=== PATIENT | male | born 1975 | race Caucasian/White ===

== ENCOUNTER 2016-10-29 18:51 | Inpatient (IN) | payer OTHER ==
[~2016-10-29] VITALS: Ht 193 cm; Wt 66.5 kg
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
--- NOTE | ~2016-10-29 | OR ---
Unit #: [id number] #: [id number] Patient: ZAIRE GRIFFIN [id number] [address] [address] [id number] I MR#: [id number] NAME: ZAIRE GRIFFIN ROOM: [facility] Date of Procedure: 10/30/2016 Admission Date: 10/29/2016 Surgeon: Carlos Taylor M.D. : 1975 Attending Physician: Dori Stinson M.D. Primary Care Physician: Tequila Galindo A.P.R.N. OPERATIVE REPORT PROCEDURE PERFORMED Esophagogastroduodenoscopy with biopsy. INDICATIONS FOR PROCEDURE Hematemesis, painful swallowing. MEDICATIONS Monitored anesthesia. POSTOPERATIVE FINDINGS 1. Severe circumferential esophagitis involving proximal, distal, and mid esophagus. Biopsies taken. 2. Right hiatal hernia. 3. Chronic Biopsies taken. 4. Normal duodenum and distal duodenum. PLAN Continue with aggressive PPI therapy and mechanical soft diet. Follow up on the pathology report. DESCRIPTION OF PROCEDURE The patient was explained of the procedure risk and benefits along with risk and benefits of anesthesia. He was brought to the endoscopy room. Propofol anesthesia was given. Bite block was placed. Scope was passed down the mouth into esophagus, stomach, duodenum, and distal duodenum. Findings as described. Biopsies taken. Gently, I pulled the scope out of the patient's mouth. He tolerated it well. Dictated by... Lynnette Agee/sammy TD: 10/30/2016 13:09 JOB #: [id number] CC: Tequila Galindo A.P.R.N. Unit #: [id number] #: [id number] Patient: ZAIRE GRIFFIN OPERATIVE REPORT Page 1 of 1 X Carlos Taylor MD X PROCEDURE OPERATIVE NOTE
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
[~2016-10-29 18:51] MED LIST: FOLIC ACID1 MG PO; HYDROCHLOROTHIA25 MG PO; LIBRIUM25 M1 PO; LISINOPRIL20 MG PO; MULTI VITAMIN1 EACH PO; NICOTINE P1 PATCH .1 TD; NO MEDICATIONS; THIAMINE HCL100 M1 PO
[2016-10-29 20:29] LABS: BASOPHIL% 0.5 % (0-2.5); EOSINOPHIL# 0.1 X10e3 (0-0.7); HEMATOCRIT 35.6 % (38.0-50.0); HEMOGLOBIN 12.3 gm/dL (13.0-16.0); LYMPHOCYTE# 1.2 X10e3 (1.0-3.5); LYMPHOCYTE% 21.5 % (17.0-45.0); MEAN CELL VOLUME 88.6 FL (83-96); MEAN CORPUSCULAR HEMOGLOBIN 30.6 PG (28-34); MEAN CORPUSCULAR HGB CONC 34.5 g/dL (30-36); MONOCYTE# 0.8 X10e3 (0-1.0); MONOCYTE% 14.2 % (3.0-12.0); NEUTROPHIL# 3.4 X10e3 (1.5-7.1); NEUTROPHIL% 62.8 % (40-75); PLATELET COUNT 280 X10e3 (140-420); RED BLOOD COUNT 4.01 X10e (3.90-5.60); RED CELL DISTRIBUTION WIDTH 13.3 % (11.0-15.5); WHITE BLOOD COUNT 5.4 X10e3 (4.0-10.5)
[2016-10-29 20:35] LABS: DIFF IND NO
[2016-10-29 20:43] LABS: INR 0.9; PARTIAL THROMBOPLASTIN TIME 25.4 SECONDS (23.5-31.3)
[2016-10-29 20:47] LABS: ALBUMIN SERUM 3.8 g/dL (3.5-5.0); ALKALINE PHOSPHATASE 50 U/L (32-92); ALT (SGPT) 117 U/L (10-40); AST (SGOT) 102 U/L (10-42); BILIRUBIN, DIRECT 0.1 mg/dL (0.0-0.2); BILIRUBIN,INDIRECT 0.3 mg/dL (0.0-0.9); BILIRUBIN,TOTAL 0.4 mg/dL (0.2-2.0); BLOOD UREA NITROGEN <5 mg/dL (9-23); CALCIUM SERUM 8.6 mg/dL (8.4-10.2); CARBON DIOXIDE 30 mmol/L (22-31); CHLORIDE 91 mmol/L (100-111); CREATININE SERUM 0.5 mg/dL (0.6-1.4); GLOM FILT RATE Estimated 132.8 mL/min (>60); GLUCOSE FASTING 111 mg/dL (70-110); PROTEIN TOTAL SERUM 6.1 g/dL (6.0-8.3); SODIUM 129 mmol/L (135-145)
[2016-10-29 20:48] LABS: POTASSIUM 3.1 mmol/L (3.5-5.1)
[2016-10-30 03:49] LABS: BASOPHIL% 0.4 % (0-2.5); EOSINOPHIL# 0.1 X10e3 (0-0.7); EOSINOPHIL% 1.1 % (0.0-7.0); HEMATOCRIT 33.8 % (38.0-50.0); HEMOGLOBIN 11.6 gm/dL (13.0-16.0); LYMPHOCYTE# 1.8 X10e3 (1.0-3.5); MEAN CELL VOLUME 88.4 FL (83-96); MEAN CORPUSCULAR HEMOGLOBIN 30.5 PG (28-34); MEAN CORPUSCULAR HGB CONC 34.5 g/dL (30-36); MEAN PLATELET VOLUME 6.9 FL (6.5-11.5); MONOCYTE# 0.7 X10e3 (0-1.0); MONOCYTE% 12.9 % (3.0-12.0); NEUTROPHIL# 3.1 X10e3 (1.5-7.1); NEUTROPHIL% 53.6 % (40-75); PLATELET COUNT 284 X10e3 (140-420); RED BLOOD COUNT 3.82 X10e (3.90-5.60); RED CELL DISTRIBUTION WIDTH 13.4 % (11.0-15.5); WHITE BLOOD COUNT 5.7 X10e3 (4.0-10.5)
[2016-10-30 03:51] LABS: DIFF IND NO
[2016-10-30 04:16] LABS: CALCIUM SERUM 8.2 mg/dL (8.4-10.2); CARBON DIOXIDE 29 mmol/L (22-31); CHLORIDE 96 mmol/L (100-111); CREATININE SERUM 0.6 mg/dL (0.6-1.4); GLOM FILT RATE Estimated 123.2 mL/min (>60); GLUCOSE FASTING 99 mg/dL (70-110); SODIUM 131 mmol/L (135-145)
[2016-10-30 04:22] LABS: BLOOD UREA NITROGEN <5 mg/dL (9-23); BUN/CREATININE RATIO 8.33
[2016-10-30 19:11] LABS: CALCIUM SERUM 8.1 mg/dL (8.4-10.2); CARBON DIOXIDE 24 mmol/L (22-31); CHLORIDE 99 mmol/L (100-111); CREATININE SERUM 0.7 mg/dL (0.6-1.4); GLOM FILT RATE Estimated 115.6 mL/min (>60); GLUCOSE FASTING 107 mg/dL (70-110); MAGNESIUM 1.8 mg/dL (1.6-3.0); SODIUM 132 mmol/L (135-145)
[2016-10-30 19:12] LABS: BLOOD UREA NITROGEN <5 mg/dL (9-23); BUN/CREATININE RATIO 7.14; POTASSIUM 3.1 mmol/L (3.5-5.1)
[2016-10-31 02:33] LABS: HEMATOCRIT 33.4 % (38.0-50.0); HEMOGLOBIN 11.4 gm/dL (13.0-16.0); MEAN CELL VOLUME 89.8 FL (83-96); MEAN CORPUSCULAR HEMOGLOBIN 30.7 PG (28-34); MEAN CORPUSCULAR HGB CONC 34.1 g/dL (30-36); MEAN PLATELET VOLUME 7.1 FL (6.5-11.5); RED BLOOD COUNT 3.72 X10e (3.90-5.60); RED CELL DISTRIBUTION WIDTH 13.6 % (11.0-15.5); WHITE BLOOD COUNT 6.7 X10e3 (4.0-10.5)
[2016-10-31 03:04] LABS: ALBUMIN SERUM 3.4 g/dL (3.5-5.0); BILIRUBIN,TOTAL 0.5 mg/dL (0.2-2.0); BUN/CREATININE RATIO 8.33; CALCIUM SERUM 8.1 mg/dL (8.4-10.2); CREATININE SERUM 0.6 mg/dL (0.6-1.4); GLOM FILT RATE Estimated 123.2 mL/min (>60); POTASSIUM 3.5 mmol/L (3.5-5.1); PROTEIN TOTAL SERUM 5.5 g/dL (6.0-8.3)
[2016-10-31] MEDS ORDERED: LISINOPRIL10 MG PO (13:50)
[2016-10-31] MEDS ORDERED: PROTONIX PO (13:50)
[2016-10-31] MEDS ORDERED: HYDRALAZINE HCL25 MG PO (13:51)
[2016-10-31] MEDS ORDERED: NICOTINE TRANSD14 MG TOP (13:59)
[2016-10-31] MEDS ORDERED: SUPER MULTIPLE1 EACH PO (14:01)
[2016-10-31] MEDS ORDERED: THIAMINE HCL100 M1 PO (14:02)
== END 2016-10-31 15:06 | disposition home or self-care (01) | DRG 392 ==
LOC: CED 18:51 → C4B 22:00 → CEDOF 22:00 → CED 22:09 → CEDOF 10-30 05:59 → C4B 10-30 07:57
PROVIDERS: Emergency Medicine; Internal Medicine
PROC: 0DB68ZX Excision of Stomach, Via Natural or Artificial Opening Endoscopic, Diagnostic (ICD-10-PCS; principal; 2016-10-30 09:21)
DX: K20.9 Esophagitis, unspecified (principal); E44.0 Moderate protein-calorie malnutrition; K92.0 Hematemesis; E83.51 Hypocalcemia; E87.1 Hypo-osmolality and hyponatremia; K70.10 Alcoholic hepatitis without ascites; F10.10 Alcohol abuse, uncomplicated; K44.9 Diaphragmatic hernia without obstruction or gangrene; Z68.20 Body mass index [BMI] 20.0-20.9, adult; E87.6 Hypokalemia; K29.50 Unspecified chronic gastritis without bleeding; I10 Essential (primary) hypertension; Z88.5 Allergy status to narcotic agent; R74.0 Nonspecific elevation of levels of transaminase and lactic acid dehydrogenase [LDH]; F17.200 Nicotine dependence, unspecified, uncomplicated; Z82.49 Family history of ischemic heart disease and other diseases of the circulatory system; Z83.3 Family history of diabetes mellitus
CPT/HCPCS: 36415; 80048; 80053; 80076; 83735; 84132; 85025; 85027; 85610; 85730; 86850; 86900; 86901; 88305; 88312; 96374; 99285; C9113; G0378; J3411; J3475; J3480